=== PATIENT | female | born 1965 | race African-American/Black ===

== ENCOUNTER 2018-01-10 15:34 | Outpatient (CLI) | payer BC ==
--- NOTE | 2018-01-15 08:31 | BD ---
DEXA BONE DENSITY STUDY: HISTORY: 52-year-old female. Screening study. COMPARISON: None. FINDINGS: Lumbar Spine: BMD (g/cm2) T-Score Z-Score L1 1.104 1.0 1.2 L2 1.209 1.6 1.8 L3 1.188 0.9 1.1 L4 1.273 1.9 2.1 L1-L4 1.198 1.4 1.5 Impression: The WHO classification is normal. Fracture risk not increased. Left Hip: Femoral neck: 0.910 0.5 0.4 Total Femur: 1.097 1.3 0.9 Impression: WHO classification is normal. FRAX not reported as all T-scores are above -1.0. POS: [facility]
== END 2018-01-10 15:35 | disposition home or self-care (01) ==
LOC: BICMAMMO 15:34
DX: Z12.31 Encounter for screening mammogram for malignant neoplasm of breast (principal); Z13.820 Encounter for screening for osteoporosis; Z78.0 Asymptomatic menopausal state
CPT/HCPCS: 77063; 77067; 77080

== ENCOUNTER 2020-04-01 15:40 | Outpatient (CLI) | payer BC ==
--- NOTE | 2020-04-01 15:57 | RAD ---
XR Chest Pa Lat STANDARD HISTORY: Shortness of breath COMPARISON: 11/27/2016 FINDINGS: The heart size is normal. The lungs are well expanded without focal areas of consolidation, pneumothorax or pleural effusions. IMPRESSION: No radiographic evidence of acute cardiopulmonary process.
== END 2020-04-01 15:41 | disposition home or self-care (01) ==
LOC: BICRAD 15:40
PROVIDERS: ATTEND Internal Medicine
DX: R06.02 Shortness of breath (principal)
CPT/HCPCS: 71046

== ENCOUNTER 2020-12-30 14:40 | Outpatient (CLI) | payer BC | END 2020-12-30 14:41 | disposition home or self-care (01) | LOC: BICRAD 14:40 | PROVIDERS: ATTEND Family Medicine | DX: M47.22 Other spondylosis with radiculopathy, cervical region (principal) | CPT/HCPCS: 72040 ==

== ENCOUNTER 2022-05-05 11:31 | Outpatient (CLI) | payer BC ==
[~2022-05-05 11:31] MED LIST: Iopamidol 370 76% 100 ML VIAL ONE
== END 2022-05-05 11:32 | disposition home or self-care (01) ==
LOC: CT 11:31
PROVIDERS: ATTEND Psychiatry & Neurology Neurology
DX: G45.9 Transient cerebral ischemic attack, unspecified (principal); R20.2 Paresthesia of skin; I34.0 Nonrheumatic mitral (valve) insufficiency; I37.1 Nonrheumatic pulmonary valve insufficiency
CPT/HCPCS: 70496; 70498; 93306; Q9967

== ENCOUNTER 2023-05-02 20:00 | Observation (INO) | payer BC, OTHER ==
[2023-05-02 20:45] LABS: #Eosinphils 0.1 thou/uL (0.0-0.7); #Monocytes 0.3 thou/uL (0.11-0.59); #Neutrophils 2.8 thou/uL (1.40-6.50); %Basophils 0.6 % (0.0-1.0); %Lymphocytes 49.8 % (21.0-51.0); %Monocytes 5.2 % (0.0-10.0); %Neutrophils 42.1 % (42.0-75.0); Hematocrit 37.3 % (36.0-47.0); Hemoglobin 12.9 g/dL (12.0-16.0); Mean Corpuscular HGB CONC 34.6 g/dL (32.0-36.0); Mean Corpuscular Hemoglobin 33.2 pg (27.0-31.0); Mean Corpuscular Volume 95.9 fl (78.0-98.0); Platelet Count 265 10x3/uL (130-400); RBC Distribution Width 12.6 % (11.5-14.5); Red Blood Cell (RBC) Count 3.89 mill/uL (4.20-5.40); White Blood Cell (WBC) Count 6.6 10x3/uL (4.8-10.8)
[2023-05-02 20:58] LABS: INR-International Normal Ratio 0.9; Prothrombin Time 12.5 sec (12.0-14.7)
[2023-05-02 20:59] LABS: PTT 26.9 sec (22.9-36.1)
[2023-05-02 21:10] LABS: ALT (SGPT) 9 U/L (8-55); AST (SGOT) 13 U/L (5-34); Alkaline Phosphatase 56 U/L (40-110); Anion Gap 14 mmol/L (10-20); BUN (Urea Nitrogen) 13 mg/dL (9.8-20.1); Bilirubin, Total 0.5 mg/dL (0.2-1.2); Calc. Creatinine Clearance 0 mL/min (70-130); Calcium 9.5 mg/dL (7.8-10.44); Carbon Dioxide 28 mmol/L (22-29); Chloride 104 mmol/L (98-107); Estimated GFR 86; Globulin 3.2 g/dL (2.4-3.5); Glucose 80 mg/dL (70-105); Potassium 3.6 mmol/L (3.5-5.1); Protein, Total 7.2 g/dL (6.0-8.3); Sodium 142 mmol/L (136-145)
[2023-05-02 21:14] LABS: Troponin I Less than 0.010 ng/mL (< 0.028)
[2023-05-02] MEDS ORDERED: Aspirin 325 MG TAB ONE (21:22)
[2023-05-02] MEDS ORDERED: Acetaminophen 325 MG TAB PO PRN ×2 (22:15→23:33)
[2023-05-02] MEDS ORDERED: Ondansetron ODT 4 MG TAB SL PRN (22:15)
[2023-05-02] MEDS ORDERED: Ondansetron PF 4 MG/2 ML Vial IVP PRN (22:15)
[2023-05-02] MEDS ORDERED: Ondansetron ODT 4 MG TAB PO PRN (23:33)
[2023-05-03 04:19] VITALS: BMI 29.2
[2023-05-03 05:11] LABS: #Eosinphils 0.1 thou/uL (0.0-0.7); #Monocytes 0.3 thou/uL (0.11-0.59); #Neutrophils 2.6 thou/uL (1.40-6.50); %Basophils 0.7 % (0.0-1.0); %Eosinophils 2.1 % (0.0-10.0); %Lymphocytes 46.4 % (21.0-51.0); %Neutrophils 45.6 % (42.0-75.0); Hematocrit 35.2 % (36.0-47.0); Hemoglobin 11.5 g/dL (12.0-16.0); Mean Corpuscular HGB CONC 32.7 g/dL (32.0-36.0); Mean Corpuscular Hemoglobin 32.4 pg (27.0-31.0); Mean Platelet Volume 9.2 fL (7.4-10.4); Platelet Count 240 10x3/uL (130-400); RBC Distribution Width 12.7 % (11.5-14.5); Red Blood Cell (RBC) Count 3.55 mill/uL (4.20-5.40); White Blood Cell (WBC) Count 5.8 10x3/uL (4.8-10.8)
[2023-05-03 05:17] LABS: Mean Corpuscular Volume 99.2 fl (78.0-98.0)
[2023-05-03 05:57] LABS: Anion Gap 12 mmol/L (10-20); BUN (Urea Nitrogen) 12 mg/dL (9.8-20.1); Calc. Creatinine Clearance 79 mL/min (70-130); Calcium 8.9 mg/dL (7.8-10.44); Carbon Dioxide 29 mmol/L (22-29); Chloride 105 mmol/L (98-107); Estimated GFR 79; Glucose 104 mg/dL (70-105); Potassium 3.2 mmol/L (3.5-5.1); Sodium 143 mmol/L (136-145)
[2023-05-03] MEDS ORDERED: Electrolyte Replacement Protocol 1 EACH FS SCH (07:26)
[2023-05-03] MEDS: Aspirin 81 mg Enteric Coated Tablet PO SCH (09:01)
[2023-05-03] MEDS: Potassium Chloride 20 MEQ TAB PO SCH (09:01)
[2023-05-03 12:24] VITALS: BP 152/75; TEMP 97.8
[2023-05-03] MEDS: Famotidine 20 MG TAB PO SCH (12:54)
[2023-05-03] MEDS ORDERED: Atorvastatin Calcium 40 MG TAB PO SCH (21:00)
== END 2023-05-03 12:17 | disposition home or self-care (01) ==
LOC: ERS 20:00 → ERHOLD 22:40 → 2SW 05-03 03:41
PROVIDERS: ADMIT Student in an Organized Health Care Education/Training Program; ATTEND Internal Medicine
DX: R20.2 Paresthesia of skin (principal); I10 Essential (primary) hypertension; E03.9 Hypothyroidism, unspecified; Z79.82 Long term (current) use of aspirin; Z79.890 Hormone replacement therapy; Z79.899 Other long term (current) drug therapy
CPT/HCPCS: 36415; 70450; 70496; 70498; 70551; 80048; 80053; 84484; 85025; 85610; 85730; 86850; 86900; 86901; 93005; G0378

== ENCOUNTER 2024-02-04 15:47 | Outpatient (CLI) | payer BC | END 2024-02-04 15:48 | disposition home or self-care (01) | LOC: BICMAMMO 15:47 | PROVIDERS: ATTEND Family Medicine | DX: Z12.31 Encounter for screening mammogram for malignant neoplasm of breast (principal) | CPT/HCPCS: 77063; 77067 ==

== ENCOUNTER 2024-10-25 15:08 | Outpatient (CLI) | payer BC | END 2024-10-25 15:09 | disposition home or self-care (01) | LOC: ULT 15:08 | PROVIDERS: ATTEND Physician Assistant | DX: H53.9 Unspecified visual disturbance (principal) | CPT/HCPCS: 93880 ==

== ENCOUNTER 2025-02-07 14:02 | Outpatient (CLI) | payer BC | END 2025-02-07 14:03 | disposition home or self-care (01) | LOC: BICMAMMO 14:02 | PROVIDERS: ATTEND Family Medicine | DX: Z12.31 Encounter for screening mammogram for malignant neoplasm of breast (principal); R92.333 Mammographic heterogeneous density, bilateral breasts | CPT/HCPCS: 77063; 77067 ==

== ENCOUNTER 2025-02-26 14:34 | Outpatient (CLI) | payer BC, OTHER ==
[2025-02-26 15:06] LABS: Estimated GFR - POC 73.0
== END 2025-02-26 14:35 | disposition home or self-care (01) ==
LOC: SCSMRI 14:34
PROVIDERS: ATTEND Family Medicine
DX: R20.2 Paresthesia of skin (principal); M79.601 Pain in right arm; M79.602 Pain in left arm; I67.82 Cerebral ischemia; R90.82 White matter disease, unspecified; I73.9 Peripheral vascular disease, unspecified
CPT/HCPCS: 36415; 70553; 76376; 82565